=== PATIENT | female | born 1985 | race Caucasian/White ===

== ENCOUNTER → 2016-11-17 | Outpatient (CLI) | payer BC, OTHER ==
[2016-11-17 17:54] LABS: BASO % 0.3 %; BASO ABS # 0.02 K/uL (0-0.2); COMPLETE YES; EOS % 0.7 %; HEMATOCRIT 38.2 % (37-47); IG% 0.1 %; LYMPH ABS # 2.59 K/uL (1.2-3.4); MEAN CELL VOLUME 90.5 fL (80-100); MEAN CORPUSCULAR HEMOGLOBIN 30.1 pg (25-34); MEAN CORPUSCULAR HGB CONC 33.2 g/dl (32-36); MEAN PLATELET VOLUME 9.4 fL (7.4-10.4); MONO % 8.1 %; NEUT % 56.8 %; PLATELET COUNT 241 K/uL (130-400); RED BLOOD COUNT 4.22 M/uL (4.2-5.4); WHITE BLOOD COUNT 7.62 K/uL (4.8-10.8)
[2016-11-17 18:16] LABS: ALT/SGPT 18 U/L (12-78); AST/SGOT 7 U/L (15-37); BLOOD UREA NITROGEN 10 mg/dl (7-18); BUN/CREATININE RATIO 12.9 (10-20); CALCIUM 8.6 mg/dl (8.5-10.1); CARBON DIOXIDE 28 mmol/L (21-32); CHLORIDE 105 mmol/L (98-107); CREATININE 0.75 mg/dl (0.60-1.20); GLUCOSE 106 mg/dl (70-99); POTASSIUM 3.6 mmol/L (3.5-5.1); SODIUM 141 mmol/L (136-145)
[2016-11-17 18:27] LABS: ALB/GLOB RATIO 1.1 (0.9-2); ALKALINE PHOSPHATASE 45 U/L (45-117)
== END | disposition home or self-care (01) ==
LOC: C.LABMFLN 12:19
PROVIDERS: ATTEND Physician Assistant
DX: Z00.00 Encounter for general adult medical examination without abnormal findings (principal); E55.9 Vitamin D deficiency, unspecified

== ENCOUNTER 2024-02-10 06:35 | Observation (INO) ==
--- NOTE | 2024-01-27 12:52 | Anesthesiology Consultation ---
Date of Service January 27, 2024 Assessment & Plan (1) Encounter for pre-operative examination: Plan - check urine test STAT am DOS. abnormal cervical spine MRI 04/14/23: Midline deep paraspinal soft tissue edema in suboccipital regional extending into C1-2 interspinous space bilateral, right greater than left T2 hyperintense extra-axial collections posterior to the dura with a well marginated 1 cm round structure on the right side. The signal abnormality in the cystic structure is along the expected course of the exiting bilateral C2 nerve roots. Overall, the spectrum findings are highly concerning for nerve root avulsion injury and CSF leak. Correlate clinically for history of trauma. In the absence of trauma, consider possibility of underlying collagen vascular/connective tissue disorders like Victorino-Danlos syndrome. Possibility of cystic nerve sheath tumor is less likely. Recommend further evaluation with MRI cervical spine with contrast only. - neurosurgery note 08/26/23: "...last seen 02/18/23 since then, has had C spine MRI, CTH/C spine CT, EMG and lumbar SPECT scan. Continues with stiffness in neck, headaches...CT cervical spine w/o contrast 05/17/23: mild degenerative changes. No evidence of fracture...abnormal C spine MRI [avulsed C2 nerve roots, AMELIA] chronic neck and lower back pain...reviewed results of studies, will plan to repeat C spine MRI in 1 year to assess for interval change, re: symptom management/pain, have referred to pain management to consider facet joint injections vs AMI..." - Case discussed in detail with Dr. Ocampo who advised nothing additional is needed other than notations as above on abnormal cervical imaging for anesthesiologist review am DOS. - Per welder fitter arc on 01/27/24: No known infectious disease contacts, current infectious disease symptoms in past 10 days or COVID positive test result in the past 30 days. Chart Review Chart Review: Acceptable Risk for Surgery and Patient NOT seen in Pre Admission Testing History Surgery Operation Date: 02/10/24 09:10 Proposed Procedures p Right Thyroid Lobectomy with Isthmusectomy - Regino Bacon, Height/Weight Height: 5 ft 8 in Weight: 81.647 kg Allergies Allergy/AdvReac Type Severity Reaction Status Date / Time Penicillins Allergy Severe Rash Verified 01/27/24 12:12 Medications Home Medications Medication Instructions Recorded Confirmed Last Taken fluticasone propionate 50 2 sprays intranasal DAILY #16 grams 03/08/19 01/27/24 Unknown mcg/actuation nasal spray,suspension ascorbate calcium (vitamin C) 500 500 mg PO QAM 01/27/24 01/27/24 Unknown mg tablet cholecalciferol (vitamin D3) 25 1,000 units PO QAM 01/27/24 01/27/24 Unknown mcg (1,000 unit) capsule fexofenadine 180 mg tablet 180 mg PO QAM 01/27/24 01/27/24 Unknown (Parvin Allergy) Past Medical History Medical History (Updated 01/27/24 @ 12:49 by Sandy Benavidez PA-C) Allergic rhinitis Bladder cystocele Degenerative disc disease Hx of motion sickness Lumbar disc herniation hx Migraines "occasionally" Pineal gland cyst pt unaware PONV (postoperative nausea and vomiting) Radiculopathy "comes and goes" bilateral legs with tingling only - no other issues. Past Family History Family History Grandmother Diabetes Colorectal cancer Grandfather Diabetes Mother Thyroid cancer Other No family history of adverse response to anesthesia Denies family history of Ovarian cancer Prostate cancer Myocardial infarction Breast cancer Stroke Past Surgical History Surgical History H/O vaginal surgery (2016) vaginal frenectomy ([facility] [place]) History of colonoscopy Hx of tonsillectomy Hx of wisdom tooth extraction Aug 2022 S/P thyroid biopsy "atypical cells" Social History Smoking Status: Never smoker Do You Dip or Chew Tobacco: No Hx Alcohol Use: No Hx Substance Use: No Lab Results Anesthesia Preop Results Results Anesthesia Widget: WBC 8.19 K/ul (4.8-10.8) 01/13/24 Hgb 11.8 g/dl (12.0-16.0) L 01/13/24 Hct 37.4 % (37.0-47.0) 01/13/24 Plt 294 K/uL (130-400) 01/13/24 Na 138 mmol/L (136-145) 01/13/24 K 3.8 mmol/L (3.5-5.1) 01/13/24 Cl 105 mmol/L (98-107) 01/13/24 CO2 28 mmol/L (21-32) 01/13/24 BUN 11 mg/dl (6-23) 01/13/24 Creat 0.73 mg/dl (0.6-1.2) 01/13/24 Glucose Level 87 mg/dl (70-99(Fasting)) 01/13/24 Testing Cervical Spine Date: 04/14/23 Midline deep paraspinal soft tissue edema in suboccipital regional extending into C1-2 interspinous space bilateral, right greater than left T2 hyperintense extra-axial collections posterior to the dura with a well marginated 1 cm round structure on the right side. The signal abnormality in the cystic structure is along the expected course of the exiting bilateral C2 nerve roots. Overall, the spectrum findings are highly concerning for nerve root avulsion injury and CSF leak. Correlate clinically for history of trauma. In the absence of trauma, consider possibility of underlying collagen vascular/connective tissue disorders like Victorino-Danlos syndrome. Possibility of cystic nerve sheath tumor is less likely. Recommend further evaluation with MRI cervical spine with contrast only. Approximately 2.2 cm right thyroid nodule. Other Testing CT neck 12/23/23 No focal neck mass or pathologic lymphadenopathy identified as per imaging criteria. Stable cystic lesion in the right lobe of the thyroid. 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 Cervical spine degenerative changes.
[2024-02-10] MEDS: LR 15ML/HR IV SCH (07:19)
[2024-02-10 07:24] LABS: Pregnancy Test, Serum Negative (Negative)
[2024-02-10] MEDS ORDERED: fentaNYL citrate PF 100 MCG/2 ML VIAL ONE (07:42)
[2024-02-10] MEDS ORDERED: ROCURONIUM BROMIDE 10 MG/ML 5 ML VIAL IV ONE ×2 (07:42→09:40)
[2024-02-10] MEDS ORDERED: MIDAZOLAM HCL 1 MG/ML 2ML VIAL ONE (07:42)
[2024-02-10] MEDS ORDERED: PROPOFOL IV EMULSION 10 MG/ML 20 ML VIAL IV ONE ×2 (07:42→10:29)
[2024-02-10] MEDS ORDERED: LIDOCAINE 2% 2 ML VIAL/AMP(20MG/ML) INFIL ONE ×2 (07:42)
[2024-02-10] MEDS ORDERED: ePHEDrine sulfate 50 MG/ML AMP IV PRN (08:00)
[2024-02-10] MEDS ORDERED: ATROPINE SULFATE 0.1 MG/ML 10ML SYR IV PRN (08:00)
[2024-02-10] MEDS ORDERED: HYDROmorphone INJ 2 MG/ML SYR/VIAL IV PRN (08:00)
[2024-02-10] MEDS ORDERED: ONDANSETRON INJ 2 MG/ML 2 ML VIAL IV PRN (08:00)
--- NOTE | 2024-02-10 08:04 | History & Physical Report ---
Date of Service February 10, 2024 Assessment & Plan (1) Thyroid nodule: Plan: We discussed the options and risks of both surgical and conservative and the pros and cons of each. We discussed potential risks which include bleeding, infection, hematoma requiring urgent evacuation, injury to the recurrent laryngeal nerve, DVT, PE, [place], CVA etc. I have answered all of her questions. Will proceed today with a right thyroid lobectomy with isthmusectomy. History of Present Illness Primary Care Provider: Evy Sinha-DO Regino Knowleselle is here today for a right thyroid lobectomy and isthmusectomy. She has a right thyroid nodule which was follicular in nature with atypia. She also had a questionable lymph node on one of her imaging studies however follow-up CT sc an did not show any pathologic lymphadenopathy or focal mass. There is been no changes to her health history since I seen her last in the office. Allergies Allergy/AdvReac Type Severity Reaction Status Date / Time Penicillins Allergy Severe Rash Verified 02/10/24 07:02 Home Medications Medication Instructions Recorded Confirmed Type fluticasone propionate 50 2 sprays intranasal DAILY #16 grams 03/08/19 02/10/24 Rx mcg/actuation nasal spray,suspension ascorbate calcium (vitamin C) 500 500 mg PO QAM 01/27/24 02/10/24 History mg tablet cholecalciferol (vitamin D3) 25 1,000 units PO QAM 01/27/24 02/10/24 History mcg (1,000 unit) capsule fexofenadine 180 mg tablet 180 mg PO QAM 01/27/24 02/10/24 History (Parvin Allergy) Past Med/Surg History Problem List Encounter for pre-operative examination Cervical lymphadenopathy Thyroid nodule Epidermal cyst Cyst of skin Pre-employment examination URI (upper respiratory infection) 05/20/21 Routine gynecological examination Cerumen impaction Well adult on routine health check Medical History Allergic rhinitis Bladder cystocele Degenerative disc disease Hx of motion sickness Lumbar disc herniation hx Migraines "occasionally" Pineal gland cyst pt unaware PONV (postoperative nausea and vomiting) Radiculopathy "comes and goes" bilateral legs with tingling only - no other issues. Surgical History H/O vaginal surgery (2017) vaginal frenectomy ([facility]) History of colonoscopy Hx of tonsillectomy Hx of wisdom tooth extraction Aug 2022 S/P thyroid biopsy "atypical cells" Family History Grandmother Diabetes Colorectal cancer Grandfather Diabetes Mother Thyroid cancer Other No family history of adverse response to anesthesia Denies family history of Ovarian cancer Prostate cancer Myocardial infarction Breast cancer Stroke Social History Smoking Status: Never smoker Second Hand Exposure: No; Do You Dip or Chew Tobacco: No; Tobacco Cessation Education Requested by Patient: No Hx Alcohol Use: No Hx Substance Use: No Preferred Language: Hebrew Communication Ability: Effective Visual Impairment: No Limitations Hearing Ability: Normal Packaging Tech Required: No Beliefs That Will Affect Care: None marital status: Single Current Living Situation: Parent Current Living Situation Comment: lives with mother current occupational status: employed current occupation: Teacher How many Children do You have: 0 Other Information That Helps Us Care for You: No Feels Safe at Home: Yes Safety Concerns: Feels Safe At This Time Childhood Exposure to Second-Hand Smoke: No caffeine: Yes during the past year weight has: remained stable Dental Care, Regularly: Yes Physical Activity Frequency: Daily Seatbelt Use: always Sunscreen Use: Yes (most) Assistive Devices: Contacts Review of Systems All systems reviewed & are unremarkable except as noted in HPI & below Physical Exam Constitutional: WD/WN, vitals as above no acute distress and not ill appearing Eyes: PERRL, conjunctivae normal, anicteric sclerae EOM intact bilaterally ENMT: external ear and nose normal, oropharynx normal Ears: no hearing impairment Neck: The thyroid gland is palpable however the nodule in the right side is not. No palpable lymphadenopathy Respiratory: normal respiratory effort; no respiratory distress and does not use accessory muscles Cardiovascular: Rate/Rhythm: regular rate and regular rhythm Gastrointestinal (Abdomen): normal bowel sounds, soft, nontender, no hepatospl enomegaly Skin: no rashes, warm and dry Psychiatric: Orientation: alert, oriented x 3 and cooperative Results & Data Vital Signs (Past 12 Hours) Vital Signs Temp Pulse Resp BP Pulse Ox O2 Del Method 07/11/24 07:03 36.9 C 87 20 134/97 97 Room Air
[2024-02-10] MEDS: SCOPOLAMINE 1 MG/72 HR TDSY PATCH TD ONE (08:06)
[2024-02-10] MEDS: ACETAMINOPHEN 500 MG TAB PO STA (08:06)
[2024-02-10] MEDS: SCOPOLAMINE 1 MG/72 HR TDSY PATCH TD STA (08:06)
[2024-02-10] MEDS: CLINDAMYCIN 600 MG/D5W 50 ML BAG IV ONE (08:07)
[2024-02-10] MEDS: CLINDAMYCIN/D5W 600 MG/50 ML BAG IV ONE (08:34)
[2024-02-10] MEDS ORDERED: PHENYLEPHRINE 100MCG/ML 10ML SYR IV ONE (09:35)
[2024-02-10] MEDS ORDERED: DEXAMETHASONE SOD INJ 4 MG/ML VIAL ONE (09:35)
[2024-02-10] MEDS ORDERED: ONDANSETRON INJ 2 MG/ML 2 ML VIAL ONE (10:23)
[2024-02-10] MEDS: BUPIVACAINE/EPINEPHRINE 0.5% MPF 1:200,000 30 ML VIAL ONE (11:02)
[2024-02-10] MEDS ORDERED: SUGAMMADEX SODIUM 200 MG/2 ML VIAL IV ONE (11:02)
[2024-02-10] MEDS: TISSEEL FIBRIN SEALANT 4ML TOP ONE (11:10)
--- NOTE | 2024-02-10 11:30 | Operative Report ---
PG Post Operative Report Pre & Post Diagnosis Operation Date: 02/10/24 08:05 Pre-Op Diagnosis: Thyroid Nodule Post-Op Diagnosis: Thyroid Nodule I identified the patient and participated in the time-out.: Yes Procedure Operation Date: 02/10/24 08:05 Actual Procedures p Right Thyroid Lobectomy with Isthmusectomy(Right) - Regino Bacon DO Surgeon Regino Bacon DO Pouch Making Machine Operator melany Frias Estimated Blood Loss 25 Findings Consistent with Post-Op Diagnosis Specimens right lobe thyroid plus isthmus Description of Procedure After informed consent was obtained the patient was taken to the operating room and placed in supine position. After successful intubation a roll was placed between patient's shoulder blades and the head placed in slight extension. The entire neck and upper chest was sterilely prepped and draped in usual fashion. I began by making a horizontal incision through one of her skin folds about 2 cm above the sternal notch. I slightly favored the right side. We made flaps superiorly for several centimeters as well as inferiorly to the sternal notch using cautery. The platysma muscle was divided during this process. We then divided the fascia of the midline and gently teased the strap muscles laterally. This exposed both lobes of the thyroid gland. There was a small nodule on the right lobe of the gland but otherwise no other visible or palpable abnormalities. There was no palpable lymphadenopathy. Once the gland was exposed I was able to use primarily blunt dissection with small amounts of cautery. I began by exposing the inferior thyroid vessels. These were tied off with 3-0 silk ligature ties as well as a small clip clinical nurse occupational medicine and divided. Once I had this freed up I continued to gently dissect the gland from lateral to medial. I was able to clip and divide the middle thyroid vein. Eventually I made my way to the superior pole vessels which again I tied off using 3-0 silk ties as well as using a clip clinical nurse occupational medicine to double ligate the vessels. I did use a LigaSure device to take down the attachments to the superior aspect of the right thyroid lobe. Once I had this all freed up we then began the dissection taking the gland off of the trachea working from medial to lateral. Again I used primarily blunt dissection with small amounts of cautery. Once I had the gland completely detached I then marked it such that 2 white sutures were superior, 1 long suture marked the later aspect, and 2 short sutures marked the isthmus. During my dissection I stayed close to the gland as possible to avoid the recurrent laryngeal nerve. Once the gland was out there was adequate hemostasis. I did thoroughly irrigate the wound. Raw surfaces were all covered with Tisseel sealant and I also placed Hebert powder into the wound bed to help prevent seroma and hematoma formation. A 10 round Reinier-Vanessa drain was brought in through a separate stab incision and placed under the strap muscles as well. This was secured to the skin using 3-0 silk. At the completion of the procedure there was adequate hemostasis. I reapproximated the strap muscles using 2-0 Vicryl in simple interrupted fashion. The platysma was reapproximated using 4-0 Vicryl and the skin was closed using 5-0 Monocryl in a running subcuticular fashion. Marcaine was injected around the incision for postop erative analgesia. Benzoin Steri-Strips and an OpSite dressing were placed. The patient was awakened extubated and transferred to recovery in stable condition. My physician clinical laboratory assistant was present for the entire case was instrumental in providing exposure throughout my dissection assisting with wound closure dressing placement etc. I attest to the content of the Intraoperative Record and any orders documented therein. Any exceptions are noted below.
--- NOTE | 2024-02-10 12:25 | Anesthesiology Progress Note ---
Date of Service February 10, 2024 Anesthesia Post Procedure Vital Signs Vital Signs: Temp Pulse Resp BP Pulse Ox O2 Del Method O2 Flow Rate 02/10/24 12:15 60 20 104/63 96 Room Air 02/10/24 12:00 36.6 C 68 16 104/64 99 Room Air 02/10/24 11:50 62 18 100/66 97 Room Air 02/10/24 11:40 60 22 96/63 L 100 Oxymask 3 02/10/24 11:28 36.1 C L 64 17 101/62 99 Oxymask 6 02/10/24 07:03 36.9 C 87 20 134/97 97 Room Air Pain Intensity Anterior Neck: Pain Intensity: 3 Transfer of Care Handoff Completed per policy Notes Mental Status: alert / awake / arousable and participated in evaluation Nausea / Vomiting: adequately controlled Pain: adequately controlled Airway Patency, RR, SpO2: stable & adequate BP & HR: stable & adequate Hydration State: stable & adequate Anesthetic Complications: no major complications apparent and Pt Satisfied with anesthetic care
[2024-02-10] MEDS ORDERED: MoRPHine SULFATE 4 MG/ML 1 ML CARP\\VIAL IV PRN (12:30)
[2024-02-10] MEDS ORDERED: oxyCODONE HCL IR 5 MG TAB (IMMEDIATE RELEASE) PO PRN (12:30)
[2024-02-10] MEDS ORDERED: MoRPHine SULFATE 2 MG/ML CARP IV PRN (12:30)
[2024-02-10] MEDS: ACETAMINOPHEN 325 MG TAB PO PRN (12:42)
[2024-02-10] MEDS: ONDANSETRON INJ 2 MG/ML 2 ML VIAL IV PRN (13:26)
[2024-02-10] MEDS: ACETAMINOPHEN 325 MG TAB ONE (14:08)
[2024-02-10] MEDS: LACTATED RINGER'S 1,000 ML IV SCH (15:00)
[2024-02-10] MEDS ORDERED: CHECK SCOPOLAMINE PATCH PLACEMENT SCH (16:00)
[2024-02-10] MEDS: ceFAZolin 2000MG 2,000 MG/15 ML SYR IV SCH (18:09)
--- OUTSIDE RECORDS SUMMARY | 2024-02-10 20:51 | External Medical Summary | Summary of Care ---
Author Name Unknown Organization [facility] Address [address] [place] [address] Phone [phone] Care Team Providers Care Golf [employer] Head Former Name Role Phone Katarzyna Pham PA-C Primary Care Pro vider Reason for Visit * Auth/Cert Specialty Diagnoses / Procedures Referred By Contalbert t Referred To Contact Diagnoses Special screening for malignant neoplasms, colon Special screening for malignant neoplasms, colon [Z12.11] Procedures COLONOSCOPY, DIAGNOSTIC (RECTUM) COLONOSCOPY FLEXIBLE PROXIMAL DIAGNOSTIC Referral ID Status Reason Start Date Expiration Date Visits Re quested Visits Authorized [id number] Encounter Details Date Type Department Care Team (Latest Contact Info) Description 01/27/2024 7:51 AM EDT - 01/27/2024 9:35 AM EDT Hospital Encounter [facility]O [facility] Endoscopy [address] [phone] Bradley Gomez, DO [address], [place] [id number] Colonoscopy Discharge Disposition: Home - Self Care Allergies Active Allergy Reactions Criticality Noted Date Comments Penicillins 04/09/2014 documented as of this encounter (statuses as of 01/27/2024) Medications Medication Sig Dispensed Refills Start Date End Date Status PRILOSEC 20 MG PO CPDR 1 daily Ac tive IBUPROFEN 200 MG PO TABS as needed Active documented as of this encounter (statuses as of 01/27/2024) Immunizations Name Administration Dates Next Due DTP Vaccine 03/11/1989, 7,1983,08/17,1983 Hepatitis B, 0-19 yrs 12/25/1999,06/09/1999,05/02 MMR - Measles/Mumps/Rubella Vaccine 06/09/1999,1 1983 Meningococcal Conjugate Vacc ine (Menactra/Menveo) 02/22/2012 OPV - Polio Virus Vaccine (Oral) 989,03/25/1987,1983,08/17,1983 Seasonal Influenza, Split, I IV3, With Preserve, Inj 04/10/2014,05/16/2013,05/20/2012,05/04,06/23/2010,06/28/2009,05/14/2006 ,06/05/2005 TD - Tetanus/Diptheria (ADULT) 02/25/2000 documented as of this encounter Social History Tobacco Use Types Packs/Day Years Used Date Smoking Tobacco: Never Alcohol Use Standard Drinks/Week Comments No 0 (1 standard drink = 0.6 oz pur e alcohol) Utilities Answer Date Recorded Do you have trouble paying y our heating, water, or electric bill? (Adult - for ages 18 years and over) Not on file 01/18/2024 Is your family able to pay t he heat, water, or electric bill? (Household - for ages 0-17 years) Not on file 01/18/2024 Does your family have access to good internet? (Household - for ages 0-17 years) Not on file 01/18/2024 Social Connections Answer Date Recorded How often do you feel lonely or isolated from those around you? (Adult - for ages 18 years and over) Not on file 01/18/2024 Sex and Gender Information Value Date Recorded Sex Assigned at Not on file Gender Identity Not on file Sexual Orientation Not on file Job Start Date Occupation Industry Not on file Not on file Not on file documented as of this encounter Last Filed Vital Signs Vital Sign Reading Time Taken Comments Blood Pressure 110/73 01/27/2024 9:25 AM EDT Pulse 82 01/27/2024 9:25 AM EDT Temperature 36.2 C (97.1 F) 01/27/2024 8:55 AM ED T Respiratory Rate 18 01/27/2024 9:25 AM EDT Oxygen Saturation 99% 01/27/2024 9:25 AM EDT Inhaled Oxygen Concentration - - Weight 81.6 kg (180 lb) 01/17/2024 2:09 PM EDT Height 172.7 cm (5' 8") 01/17/2024 2:09 PM EDT Body Mass Index 27.37 01/17/2024 2:09 PM EDT documented in this encounter H&P Notes * Bradley Gomez, DO - 01/27/2024 6:52 AM EDT Endoscopy Pre-Procedure Assessment Name: Ruma Godinez Date: 01/27/2024 Time: 6:53 AM Procedure(s): Colonoscopy; with Indication(s) of average risk screening Endoscopy Pre-Procedure Assessment: Prior to the procedure, the patient is identified. The patient's history, medications and allergieshave been reviewed. The patient is competent. The risks and benefits of the proposed procedure and the planned sedation have been discussed with the patient. All questions have been answered and informed consent for the procedure has been obtained. Prior to Admission medications Medication Sig Last Dose Discont. IBUPROFEN 200 MG PO TABS as needed Patient not taking: Reported on 01/17/2024 Not Taking PRILOSEC 20 MG PO CPDR 1 daily Patient not taking: Reported on 01/17/2024 Not Taking Review of patient's allergies indicates: Allergen Reactions Penicillins BP 127/79 | Pulse 85 | Temp 36.5 C (97.7 F) (Temporal Artery) | Resp 19 | Ht 1.727 m (5' 8") | Wt 81.6 kg (180 lb) | SpO2 100% | BMI 27.37 kg/m | BSA 1.98 m Physical Exam: Mental Status Examination: alert and oriented. Airway Examination: normal oropharyngeal airway and neck mobility. Respiratory Examination: clear to auscultation. CV Examination: normal. ASA Grade: II - A patient with mild systemic disease. Abdomen: negative This patient has undergone a preprocedural evaluation. A determination has been made to proceed with the planned procedure under [facility] procedural guidelines and the CMS Non-Emergent, Elective Medical Services and Treatment Recommendations (published on 11-07-19). The community and hospital prevalence of COVID-19 has been discussed as well as this patient's specific risks associated with SARS-CoV-19 infection. Based upon the clinical acuity and patient-specific care considerations, this procedure is deemed a Tier II - Intermediate acuity treatment or service with either progression or the threat of progressive disease related to the delay in treatment. Not providing the service has the potential for increasing morbidity or mortality. After reviewing the risks and benefits, the patient is deemed in satisfactory condition to undergo the procedure. The anesthesia plan is to use general anesthesia. Bradley Gomez DO 01/27/2024 documented in this encounter Procedure Notes * Katarzyna Pham PA-C - 01/27/2024 7:52 AM EDTAssociated Order(s): COLONOSCOPY [facility] Patient Name: Ruma Godinez Procedure Date: 01/27/2024 7:52 AM Date of : 1985 Admit Type: Outpatient Note Status: Finalized Date of : 1985 Admit Type: Outpatient Age: 38 Room: [facility] 1 Gender: Female Note Status: Finalized Procedure: Colonoscopy Indications: Screening for colorectal malignant neoplasm Providers: Bradley Gomez DO (Doctor)Jie Patient Profile: Last Colonoscopy: none. The patient's first colonoscopy is today. Referring MD: LAWRENCE Lopez Medicines: Propofol per Anesthesia Complications: No immediate complications. Procedure: Pre-Anesthesia Assessment: - Patient identification and proposed procedure were verified prior to the procedure by the physician and the nurse. The procedure was verified in the pre-procedure area. - ASA Grade Assessment: II - A patient with mild systemic disease. - After reviewing the risks and benefits, the patient was deemed in satisfactory condition to undergo the procedure in an ambulatory setting. After I obtained informed consent, the scope was passed under direct vision. All instruments were visually inspected immediately before and after removal from the patient to ensure they are fully intact. Throughout the procedure, the patient's blood pressure, pulse, and oxygen saturations were monitored continuously. The [id number] Colonoscope ([id number]) was introduced through the anus and advanced to the terminal ileum. The colonoscopy was performed without difficulty. The patient tolerated the procedure well. The quality of the bowel preparation was adequate. The terminal ileum, ileocecal valve, appendiceal orifice, and rectum were photographed. The entire colon was well visualized. Retroflex done in ascending colon and two passes made. Findings & Specimens: The terminal ileum appeared normal. An area of moderate melanosis was found in the entire colon. Non-bleeding external and internal hemorrhoids were found. No additional abnormalities were found on retroflexion. Impression: - The examined portion of the ileum was normal. - Melanosis in the colon. - Non-bleeding external and internal hemorrhoids. - No specimens collected. Recommendation: - Discharge patient to home (ambulatory). - Return to primary care physician as previously scheduled. - Return to GI clinic PRN. - Repeat colonoscopy in 10 years for screening purposes. Bradley Gomez DO 01/27/2024 8:57:15 AM This report has been signed electronically. Estimated Blood Loss: none documented in this encounter Nursing Notes * Ayanna Lemos RN - 01/27/2024 9:34 AM EDT To car with staff and mother * Ayanna Lemos RN - 01/27/2024 9:26 AM EDT Dressing at bedside * Ayanna Lemos RN - 01/27/2024 9:20 AM EDT Reviewed discharge instructions and procedure results with pt. Med list and discharge instructions given. Verbalizes understanding and denies any other questions or concerns. Sat up at side of stretcher. M\\other at bedside * Ayanna Lemos RN - 01/27/2024 9:[address] Gomez in to talk with pt * Ayanna Lemos RN - 01/27/2024 9:01 AM EDT HOB elevated, tolerating drink and snack * Ayanna Lemos RN - 01/27/2024 8:59 AM EDT Pt received in recovery S/P colonoscopy. Pt awake and resting on left side. Pt denies pain. Abd soft Report received from Magalys MONROY. VSS. Airway patent. * Magalys Webb RN - 01/27/2024 8:53 AM EDT Colonoscopy completed. Pt kendal procedure well. Sedated by ENVIRONMENTAL SUSTAINABILITY MANAGER. See anesthesia record for VS and medications given. Abd soft. Airway patent. Pt to recovery on L side with HOB elevated. Report to recovery room nurse. Bedside cleaning done. * Darshana Garcias LPN - 01/27/2024 8:23 AM EDT Nursing assessment completed. Pt resting comfortably on stretcher awaiting for procedure room to become available. documented in this encounter Plan of Treatment Scheduled Orders Name Type Priority Associated Diagnoses Orde r Schedule URINE SCREEN, POINT OF CARE (ENTER/EDIT) Point of Care Testing STAT Perform Now for 1 Occurrences starting 01/27/2024 until 01/27/2024 Scheduled Procedures Name Priority Associated Diagnoses Date/Ti me COLONOSCOPY FLEXIBLE PROXIMAL DIAGNOSTIC Recall Special screening for malignant neoplasms, colon 01/27/2024 8:30 AM EDT Health Maintenance Due Date Last Done Comments Lipid Panel 1985 HIV Screening 1998 DTaP,Tdap,and Td Vaccines (6 - Tdap) 02/26/2000 02/25/2000, 03/11/1989, 03/25/1987, Additional history exists Hepatitis C Screening 2001 Pap Smear 2004 Cervical Cancer Screening 2013 HPV/Co-Test 2013 Depression Screening 04/10/2015 04/10/2014 Diabetes Screening 05/16/2017 05/16/2014 COVID-19 Vaccine ( season) 2023 10/13/2020 Mammogram 03/23/2024 03/23/2023, 03/11/2023 Influenza Vaccine (FLU shot) (Season Ended) 2024 04/10/2014, 05/16/2013, 05/20/2012, Additional history exists Hepatitis B Completed 12/25/1999, 03/1999, 05/12/1999 MENINGOCOCCAL (MENACTRA/MENVEO) Aged Out 02/22/2012, 02/22/2012 No longer eligibl e based on patient's age to complete this topic GARDASIL-HPV IMMUNIZATION SERIES Aged Out No longer eligible based on patient's age to complete this topic Pneumococcal Vaccine: Pediatrics (0 to 5 Years) and At-Risk Patients (6 to 64 Years) Aged Out No longer eligible based on patient's age to complete this topic documented as of this encounter Medical Devices Not on filedocumented as of this encounter Procedures Procedure Name Priority Date/Time Associated Diagnosis Comments COLONOSCOPY 01/27/2024 7:52 AM EDT documented in this encounter Results * COLONOSCOPY (01/27/2024 7:52 AM EDT) 01/27/2024 7:52 AM EDT Narrative Procedure Note Katarzyna Pham PA-C - 01/27/2024 7:52 AM EDT [facility] Patient Name: Ruma Godinez Procedure Date: 01/27/2024 7:52 AM Date of : 1985 Admit Type: Outpatient Note Status:Finalized Date of : 1985 Admit Type: Outpatient Age: 38 Room: Endo 1 Gender: Female Note Status: Finalized Procedure: Colonoscopy Indications: Screening for colorectal malignant neoplasm Providers: Bradley Gomez DO (Doctor), Jie Ryder Patient Profile: Last Colonoscopy: none. The patient's firstcolonoscopy is today. Referring MD: LAWRENCE Lopez Medicines: Propofol per Anesthesia Complications: No immediate complications. Procedure: Pre-Anesthesia Assessment: - Patient identification and proposed procedurewere verified prior to the procedure by the physician and the nurse. The procedure wasverified in the pre-procedure area. - ASA Grade Assessment: II - A patient with mildsystemic disease. - After reviewing the risks and benefits, thepatient was deemed in satisfactory condition to undergo the procedure in an ambulatorysetting. After I obtained informed consent, the scope waspassed under direct vision. All instruments were visually inspected immediatelybefore and after removal from the patient to ensure they are fully intact. Throughout the procedure, the patient's bloodpressure, pulse, and oxygen saturations were monitored continuously. The [id number] ([id number]) was introduced through the anus and advanced to the terminalileum. The colonoscopy was performed without difficulty. The patient tolerated theprocedure well. The quality of the bowel preparation was adequate. The terminal ileum,ileocecal valve, appendiceal orifice, and rectum were photographed. The entirecolon was well visualized. Retroflex done in ascending colon and two passesmade. Findings & Specimens: The terminal ileum appeared normal. An area of moderate melanosis was found in the entire colon. Non-bleeding external and internal hemorrhoids were found. No additional abnormalities were found on retroflexion. Impression: - The examined portion of the ileum was normal. - Melanosis in the colon. - Non-bleeding external and internal hemorrhoids. - No specimens collected. Recommendation: - Discharge patient to home (ambulatory). - Return to primary care physician as previouslyscheduled. - Return to GI clinic PRN. - Repeat colonoscopy in 10 years for screeningpurposes. Bradley Richardson DO Jason 01/27/2024 8:57:15 AM This report has been signed electronically. Estimated Blood Loss: none Katarzyna Pham PA-C GASTRO LO WER documented in this encounter Administered Medications Inactive Administered Medications - up to 3 most recent administrations Medication Order MAR Action Action Date Dose Rate Site isolyte-S pH 7.4 infusion Intravenous, at 75 mL/hr, Plasma-LYTE 148, isolyte-S, and isolyte-S pH 7.4 are considered equivalent - including for MAR barcode scanning., CONTINUOUS, Starting on Michelle 01/27/24 at 0845, Until Michelle 01/27/24 at 1144, Pre-Op Continue from Pre-Op 01/27/2024 8:28 AM EDT 75 mL/hr New Bag 01/27/2024 8:23 AM EDT 75 mL/hr documented in this encounter Active and Recently Administered Medications Times are shown in EDT. Continuous Medication Order 01/25/2024 01/26/2024 01/27/2024 isolyte-S pH 7.4 infusion Intravenous, at 75 mL/hr, Plasma-LYTE 148, isolyte-S, and isolyte-S pH 7.4 are considered equivalent - including for MAR barcode scanning., CONTINUOUS, Starting on Michelle 01/27/24 at 0845, Until Michelle 01/27/24 at 1144, Pre-Op 0823 (New Bag - Prov ider: Darshana Garcias LPN)0828 (Continue from Pre-Op - Provider: Heron Hendrix CRNA)0851 (Anes Intra-Op Fluid - Provider: Heron Hendrix CRNA)1335 (Due: Stopped) documented in this encounter Care Teams [employer] Head Former Relationship Specialty Start Date End Date Katarzyna Pham PA-C [address] [place] [address] LAWRENCE Scott [phone] PCP - General Physician Validation Technician 01/22/23 documented as of this encounter
--- OUTSIDE RECORDS SUMMARY | 2024-02-10 20:51 | External Medical Summary | Summary of Care ---
Author Name Unknown Organization [facility] Address [address] [facility] [place] [address] Phone [phone] Care Team Providers Care Regroover Name Role Phone Katarzyna Pham PA-C Primary Care Pro vider Reason for Visit * Reason Onset Date Comments Films 01/17/2024 Encounter Details Date Type Department Care Team (Late st Contact Info) Description 01/17/2024 Telephone Radiology Film File [address] [place] [id number] Tonya Moody PA-C [address] [place] [address] Films Allergies Active Allergy Reactions Criticality Noted Date Comments Penicillins 04/09/2014 documented as of this encounter (statuses as of 01/17/2024) Medications Medication Sig Dispensed Refills Start Date End Date Status PRILOSEC 20 MG PO CPDR 1 daily Ac tive IBUPROFEN 200 MG PO TABS as needed Active documented as of this encounter (statuses as of 01/17/2024) Immunizations Name Administration Dates Next Due DTP [...] drink = 0.6 oz pur e alcohol) Sex and Gender Information Value Date Recorded Sex Assigned at Not on file Gender Identity Not on file Sexual Orientation Not on file Job Start Date Occupation Industry Not on file Not on file Not on file documented as of this encounter Miscellaneous Notes * Telephone Encounter - Bradley Sieegl, Epic Support - 01/17/2024 7:42 PM EDT [facility] requesting 01-10-2024 images be pushed to their system. [place] Authorization to Release on file. Imaging pushed to [facility] external PACs connection Associated report(s) not needed. documented in this encounter Plan of Treatment Upcoming Encounters Date Type Department Care Team (Latest Contact Info) Description 01/27/2024 8:30 AM EDT Hospital Encounter [facility], Endoscopy [address] [phone] Bradley Gomez, DO [address] [place] [address] 01/27/2024 8:30 AM EDT - 01/27/2024 9:00 AM EDT Surgery [facility], Endoscopy [address] [phone] Bradley Gomez, DO [address] [place] [address] COLONOSCOPY FLEXIBLE PROXIMAL DIAGNOSTIC Scheduled Procedures Name Priority Associated Diagnoses Date/Ti [...] Not on filedocumented as of this encounter Care Teams Regroover Relationship Specialty Start Date End Date Katarzyna Pham [facility]C [facility] [address] P[facility] - General Physician Doctor Of Naturopathic Medicine 01/22/23 documented as of this encounter
[2024-02-10] MEDS: oxyCODONE HCL IR 5 MG TAB (IMMEDIATE RELEASE) PO PRN (23:17)
[2024-02-11 06:33] LABS: Basophils # (auto) 0.01 K/uL (0.00-0.20); Basophils % (auto) 0.1 %; Eosinophils # (auto) 0.02 K/uL (0.00-0.50); Eosinophils % (auto) 0.2 %; Hematocrit (blood only) 35.2 % (37.0-47.0); Hemoglobin 11.2 g/dl (12.0-16.0); Immature Granulocytes # (auto) 0.04 K/uL (0.01-0.20); Immature Granulocytes % (auto) 0.3 %; Lymphocytes # (auto) 2.26 K/uL (1.20-3.40); Mean Corpuscular Hemoglobin 27.2 pg (25.0-34.0); Mean Corpuscular Hgb Conc 31.8 g/dL (32.0-36.0); Mean Corpuscular Volume 85.4 fL (80.0-100.0); Mean Platelet Volume 9.1 fL (9.4-12.4); Monocytes # (auto) 1.21 K/uL (0.11-0.59); Monocytes % (auto) 10.2 %; Neutrophils # (auto) 8.34 K/uL (1.40-6.50); Neutrophils % (auto) 70.2 %; Platelet Count 278 K/uL (130-400); Red Blood Count 4.12 M/uL (4.20-5.40); White Blood Count 11.88 K/ul (4.8-10.8)
[2024-02-11] MEDS: FEXOFENADINE HCL 180 MG TAB PO SCH (08:50)
[2024-02-11] MEDS: FLUTICASONE PROPIONATE NA SPR 16 GM BTL SCH (08:51)
--- NOTE | 2024-02-11 09:04 | Surgery Progress Note ---
Date of Service February 11, 2024 Assessment & Plan Admission and Anticipated Discharge Date Admission Date: February 10, 2024 Subjective pt seen. doing well. some sore throat. no difficulty breathing Physical Exam Physical Exam: alert. nad incision looks good. no hematoma. SALIMA with scant serous some erythema likely from bandage adhesive. ok for d/c. instructions given. Results & Data Vital Signs (Past 12 Hours) Vital Signs Temp Pulse Pulse Resp BP BP Pulse Ox 02/11/24 07:51 62 02/11/24 07:40 36.9 C 70 20 100/65 99 02/11/24 05:38 117/72 02/11/24 03:10 36.7 C 67 18 91/43 L 95/48 L 96 02/10/24 22:29 36.3 C L 71 18 96/55 L 96 02/10/24 22:10 61 O2 Del Method 02/11/24 07:51 02/11/24 07:40 Room Air 02/11/24 05:38 02/11/24 03:10 Room Air 02/10/24 22:29 Room Air 02/10/24 22:10 PG Care Time/CCT Total # of Minutes Spent Total Time Spent with Patient: Total time spent is greater than 50% in coordination of care (as documented) at patient's floor/unit and/or counseling patient: Coding Level of Care Code 22365 Post Operative Follow-Up
--- NOTE | 2024-02-11 10:35 | Discharge Summary ---
Date of Service February 11, 2024 Admission HPI Per Admitting Provider Ruma is here today for a right thyroid lobectomy and isthmusectomy. She has a right thyroid nodule which was follicular in nature with atypia. She also had a questionable lymph node on one of her imaging studies however follow-up CT scan did not show any pathologic lymphadenopathy or focal mass. There is been no changes to her health history since I seen her last in the office. Principal Diagnosis Right Thyroid Lobectomy with Isthmusectomy Discharge Exam Constitutional WD/WN, vitals as above no acute distress and not ill appearing ENMT Ears: no hearing impairment Respiratory does not use accessory muscles Cardiovascular Rate/Rhythm: regular rate Psychiatric Orientation: alert, oriented x 3 and cooperative Discharge Data Allergies Allergy/AdvReac Type Severity Reaction Status Date / Time Penicillins Allergy Severe Rash Verified 02/10/24 07:02 Procedures Performed Operation Date: 02/10/24 08:05 Actual Procedures p Right Thyroid Lobectomy with Isthmusectomy(Right) - Regino Bacon, DO Hospital Course (1) History of lobectomy of thyroid: Patient underwent an elective Right Thyroid Lobectomy with Isthmusectomy with Dr. Bacon on 02/10/24. She was admitted to the hospital post procedure for observation and care. Her vitals signs remained stable throughout her stay. She was tolerating a regular diet post operatively. There were no signs of bleeding from the post operative site. She was deemed stable for discharge on POD 1 02/11/24. She had a SALIMA drain that was removed prior to discharge. Operative site dressing was removed and steri strips were left intact. A small gauze and tape dressing was placed over the SALIMA drain site. She had some mild erythema from the post operative adhesive bandage. The patient verbalized discharge instruction and follow up appointments. Total Time Total Time Spent Total Time Spent (In Minutes): 10 Discharge Plan Discharge Items Patient Disposition: Home - Self-Care Reason For Visit: Thyroid Nodule Discharge Diagnosis: right thyroid lobectomy Activity: Per Instructions section Lifting: No more than 10 pounds Bathing Comment: may shower starting 02/11/24; no soaking in tubs/pools x 2 weeks Exercise/Sports: Wait until after follow-up appointment Non-emergency contact: Surgeon Call non-emergency contact if: you have any medication questions, your pain is worsening, you have a fever, your temperature is above 101.5, your wound has increased redness, your wound has increased drainage and your wound pain has increased Follow-up/Referrals: Regino Bacon DO [Surgeon] - 02/28/24 9:45 am (please call to schedule follow up in clinic within 2 weeks ) Evy Corley DO [Primary Care Provider] - 02/17/24 12:00 pm Diet: Regular Addtl Attending Provider Instructions: You will have small white bandages on underneath that are over your incisions. You may shower with these on. They will tend to fall off on their own within 7- 10 days. May keep a dry dressing with gauze/tape or a bandaid over the site where your drain was removed. change daily and as needed until it has healed Call 911 if you have difficulty breathing, or notice that your developing swelling around your throat. You need to follow up with your PCP for monitoring of your thyroid hormones, calcium and magnesium levels. Pending Studies at Discharge: Yes Studies:: surgical pathology Stand-Alone Forms: My [facility] Medications and DC Order Prescriptions: New oxycodone-acetaminophen [Percocet] 5-325 mg tablet 1 - 2 tab PO .q4-6h PRN (Reason: pain, for initial therapy, max 6 tabs per day) Qty: 12 0RF Continued fluticasone propionate 50 mcg/actuation spray,suspension 2 sprays INTNAS DAILY Qty: 16 0RF Rx Instructions: administer into each nostril fexofenadine [Parvin Allergy] 180 mg tablet 180 mg PO QAM ascorbate calcium (vitamin C) 500 mg tablet 500 mg PO QAM cholecalciferol (vitamin D3) 1,000 unit capsule 1,000 units PO QAM Discharge Orders: Discharge Order (Routine); Ordered 02/11/24 Ordered By: Yara Guallpa Admission Data Admit Date/Time: 02/10/24 11:40 Attending Provider: Regino Bacon Admit Provider: Regino Bacon Primary Care Provider: Evy Corley Other Interventions: Discharge Summary Assessment (RN) Last Done: 02/11/24 10:41 Coding Level of Care Code 79612 IN/OBS DISCH 30 MIN/LESS Diagnoses History of lobectomy of thyroid Z90.09 CBC w Diff Results Results CBC w Diff Results: RBC 4.12 M/uL (4.20-5.40) L 02/11/24 WBC 11.88 K/ul (4.8-10.8) H 02/11/24 Hgb 11.2 g/dl (12.0-16.0) L 02/11/24 Hct 35.2 % (37.0-47.0) L 02/11/24 MCV 85.4 fL (80.0-100.0) 02/11/24 MCH 27.2 pg (25.0-34.0) 02/11/24 MCHC 31.8 g/dL (32.0-36.0) L 02/11/24 RDW Standard Deviation 44.0 fL (36.4-46.3) 02/11/24 RDW Coefficient of Variation 14.0 % (11.5-14.5) 02/11/24 Plt Count 278 K/uL (130-400) 02/11/24 MPV 9.1 fL (9.4-12.4) L 02/11/24 Neutrophils (%) (Auto) 70.2 % 02/11/24 Lymphocytes (%) (Auto) 19.0 % 02/11/24 Monocytes # (Auto) 1.21 K/uL (0.11-0.59) H 02/11/24 Eosinophils # (Auto) 0.02 K/uL (0.00-0.50) 02/11/24 Immature Granulocyte % (Auto) 0.3 % 02/11/24 Neutrophils # (Auto) 8.34 K/uL (1.40-6.50) H 02/11/24 Lymphocytes # (Auto) 2.26 K/uL (1.20-3.40) 02/11/24 Monocytes # (Auto) 1.21 K/uL (0.11-0.59) H 02/11/24 Eosinophils # (Auto) 0.02 K/uL (0.00-0.50) 02/11/24 Basophils # (Auto) 0.01 K/uL (0.00-0.20) 02/11/24 Immature Granulocyte # (Auto) 0.04 K/uL (0.01-0.20) 4
--- NOTE | 2024-02-14 09:48 | Coding Query ---
PATHOLOGY To promote full compliance with coding requirements relating to patient care, physician participation is requested in all cases of roustabout crew leader uncertainty. Please assist us with the question(s) below: Please review the Pathology report and please document any relevant diagnosis(es) below: Diagnosis(es): Papillary Thyroid Carcinoma Thank you [facility]
== END 2024-02-11 11:15 | disposition home or self-care (01) ==
LOC: ASU 06:35 → 2W 11:40 → INTOOBSV 11:40